=== PATIENT | female | born 1965 | race Caucasian/White ===

== ENCOUNTER 2016-12-27 19:14 | Emergency (ER) | payer MEDICAID ==
[~2016-12-27] VITALS: Ht 149.8 cm; Wt 48.1 kg
[~2016-12-27 19:14] MED LIST: 'PARAFON FORTE500 M1 PO; HYDROCODONE BIT1 T11 PO; MEDROL DOSEPAK4 MG PO; NAPROSYN500 MG PO
[2016-12-27] MEDS ORDERED: TYLENOL PM EX-1 EACH PO (19:48)
[2016-12-27] MEDS ORDERED: HYDROXYZINE PAM50 MG PO (19:48)
[2016-12-27] MEDS ORDERED: SERTRALINE HYD100 MG PO (19:48)
[2016-12-27] MEDS ORDERED: NAPROSYN500 MG PO (21:52)
== END 2016-12-27 21:57 | disposition home or self-care (01) ==
LOC: ED 19:14
DX: M54.5 Low back pain (principal); F17.200 Nicotine dependence, unspecified, uncomplicated; Z88.6 Allergy status to analgesic agent; Y08.89XA Assault by other specified means, initial encounter; Y93.89 Activity, other specified; Y92.009 Unspecified place in unspecified non-institutional (private) residence as the place of occurrence of the external cause; Y99.9 Unspecified external cause status

== ENCOUNTER 2016-12-28 15:52 | Emergency (ER) | payer OTHER ==
[~2016-12-28] VITALS: Ht 149.8 cm; Wt 47.6 kg
[~2016-12-28 15:52] MED LIST changes: +HYDROXYZINE PAM50 MG PO; +SERTRALINE HYD100 MG PO; +TYLENOL PM EX-1 EACH PO
== END 2016-12-28 15:58 | disposition home or self-care (01) ==
LOC: ED 15:52
DX: M79.605 Pain in left leg (principal); R03.0 Elevated blood-pressure reading, without diagnosis of hypertension; M25.552 Pain in left hip; F17.200 Nicotine dependence, unspecified, uncomplicated; Z88.6 Allergy status to analgesic agent; Z79.899 Other long term (current) drug therapy

== ENCOUNTER 2024-10-22 05:00 | Emergency (ER) | payer OTHER ==
[~2024-10-22] VITALS: Ht 149.8 cm; Wt 43.6 kg
[2024-10-22] MEDS ORDERED: Piperacillin Sodium/Tazobact 50 ML IV ONE (06:05)
[2024-10-22] MEDS ORDERED: Metoclopramide Hydrochloride 10 MG/2 ML VIAL IV ONE (06:05)
[2024-10-22] MEDS ORDERED: SODIUM CHLORIDE 0.9% 500 ML IV ONE (06:05)
[2024-10-22] MEDS ORDERED: diphenhydrAMINE hydrochloride 50 MG/ML VIAL IV ONE ×2 (06:05→07:40)
[2024-10-22 06:28] LABS: BASO # 0.1 10*3/uL (0.0-0.1); BASO % 1.1 % (0.0-1.0); EOS # 0.1 10*3/uL (0.0-0.4); EOS % 1.3 % (1.0-4.0); HEMATOCRIT 44.6 % (37.0-47.0); MEAN CELL VOLUME 97.6 fl (81.0-99.0); MEAN CORPUSCULAR HGB 30.4 pg (27.0-31.0); MEAN CORPUSCULAR HGB CONC 31.2 g/dl (33.0-37.0); MEAN PLATELET VOLUME 9.3 fl (9.6-12.3); MONO # 0.9 10*3/uL (0.1-1.0); MONO % 12.5 % (3.0-9.0); NEUT # 4.9 10*3/uL (2.3-7.9); NEUT % 69.6 % (47.0-73.0); PLATELET COUNT AUTOMATED 242 10*3/uL (130-400); RED BLOOD COUNT 4.57 10*6/uL (4.10-5.10)
[2024-10-22] MEDS ORDERED: SODIUM CHLORIDE 0.9% 100 ML BAG IV ONE (06:40)
[2024-10-22] MEDS ORDERED: IOHEXOL 350 MG/ML 100 ML VIAL IV ONE ×2 (06:40→07:03)
[2024-10-22 06:49] LABS: ALKALINE PHOSPHATASE 63 U/L (46-116); BUN 7 mg/dl (9-23); CHLORIDE 107 mmol/L (98-107); LIPASE 45 U/L (12-53); POTASSIUM 3.7 mmol/L (3.4-5.1); SGPT/ALT 11 U/L (5-49); TOTAL PROTEIN 6.6 gm/dL (6.0-8.0)
[2024-10-22] MEDS ORDERED: SODIUM CHLORIDE 0.9% 100 ML IV ONE (07:03)
[2024-10-22 07:23] LABS: ACT PARTIAL THROMBO TIME 30.1 SECONDS (20.0-32.1)
[2024-10-22 09:27] LABS: BILIRUBIN Negative (Negative); BLOOD Trace-Intact (Negative); CLARITY Clear (Clear); COLOR Yellow (Yellow); GLUCOSE Negative (Negative); KETONE Negative (Negative); LEUKO ESTERASE 2+ (Negative); NITRITE Positive (Negative); PH 7.5 (4.5-8.0); SPECIFIC GRAVITY >= 1.030 (1.001-1.030); UROBILINOGEN 0.2 E.U./dl (0.0-1.0)
[2024-10-22 09:41] LABS: URINE AMPHETAMINES Negative (1000ng/ml); URINE BARBITURATES Negative (200ng/ml); URINE BENZODIAZEPINES Positive (200ng/ml); URINE CANNABINOIDS (THC) Positive (50ng/ml); URINE COCAINE Negative (300ng/ml); URINE METHADONE Negative (300ng/ml); URINE OPIATES Negative (300ng/ml); URINE PHENCYCLIDINE Negative (25ng/ml)
[2024-10-22 09:51] LABS: BACTERIA 2+
[2024-10-22] MEDS ORDERED: ACETAMINOPHEN 325 MG TAB PO ONE (16:00)
== END 2024-10-22 21:34 | disposition short-term general hospital (02) ==
LOC: ED 05:00
PROVIDERS: Emergency Medicine
DX: J40 Bronchitis, not specified as acute or chronic (principal); Z20.822 Contact with and (suspected) exposure to COVID-19; C71.9 Malignant neoplasm of brain, unspecified; N39.0 Urinary tract infection, site not specified; R11.0 Nausea; R51.9 Headache, unspecified; R53.1 Weakness; F17.210 Nicotine dependence, cigarettes, uncomplicated; Z88.8 Allergy status to other drugs, medicaments and biological substances; Z98.890 Other specified postprocedural states